=== PATIENT | female | born 1995 | race Caucasian/White ===

== ENCOUNTER 2017-02-13 20:42 | Emergency (ER) | payer OTHER ==
[~2017-02-13] VITALS: Ht 167.6 cm; Wt 75.0 kg
[2017-02-13 20:43] VITALS: BP 166/103; PULSE 90; RESP 16; TEMP 98.4; O2SAT 100
[2017-02-13] MEDS ORDERED: BIRTH CONTROL PILLS (21:43)
[2017-02-13 21:49] VITALS: BP 167/93; PULSE 80; RESP 16; TEMP 98.4; O2SAT 100
--- NOTE | 2017-02-13 21:54 | PD ---
HPI Chief Complaint: Chest Pain Time Seen by Provider: 21:50 Travel History International Travel<30 days: No Contact w/Intl Traveler<30days: No Traveled to known affect area: No History of Present Illness HPI 21-year-old female presents to the emergency department by private transportation complaining of sharp left-sided chest pain that developed after awakening from a nap. Patient noted some discomfort into the left shoulder. Patient denies any previous history of chest pain. No shortness of breath. Patient does note some tenderness to the chest wall with palpation. Unable to discern if pain is worsened by deep breath. She does take control pills. Patient does not smoke cigarettes. No family history of clotting disorder. Patient has taken no medications for symptoms. Pain is 6-8/10 in intensity. PFSH Past Medical History Narrative Medical Asthma migraines control pills no tobacco use nursing notes reviewed Asthma: Yes Cardiovascular Problems: Yes Chest Pain: Yes Immunizations Current: Yes Tetanus Vaccination: Unknown Influenza Vaccination: Yes ?: Not LMP: 02/04/17 Social History Alcohol Use: Yes (occ) Tobacco Use: No Substance Use: No Allergies-Medications (Allergen,Severity, Reaction): Coded Allergies: No Known Allergies (Unverified , 02/13/17) Reported Meds & Prescriptions Reported Meds & Active Scripts Active Reported [ Control Pills] Review of Systems Except as stated in HPI: all other systems reviewed are Neg General / Constitutional: No: Fever HENT: No: Congestion Cardiovascular: Positive: Chest Pain or Discomfort Respiratory: No: Shortness of Breath, Wheezing Gastrointestinal: No: Abdominal Pain Genitourinary: No: Flank Pain Musculoskeletal: No: Edema, Pain Skin: No Rash Neurologic: No: Weakness Psychiatric: No: Anxiety Hematologic/Lymphatic: No: Lymph Node Enlargement Physical Exam Narrative GENERAL: Well-developed well-nourished female in no acute distress no respiratory distress SKIN: Warm and dry. HEAD: Normocephalic. EYES: No scleral icterus. No injection or drainage. NECK: Supple, trachea midline. No JVD or lymphadenopathy. CARDIOVASCULAR: Regular rate and rhythm without murmurs, gallops, or rubs. RESPIRATORY: Breath sounds equal bilaterally. No accessory muscle use. GASTROINTESTINAL: Abdomen soft, non-tender, nondistended. MUSCULOSKELETAL: No cyanosis, or edema. BACK: Nontender without obvious deformity. No CVA tenderness. Data Data Last Documented VS Vital Signs Date Time Temp Pulse Resp B/P (MAP) Pulse Ox O2 Delivery O2 Flow Rate FiO2 02/13/17 21:49 98.4 80 16 167/93 (117) 100 Room Air Orders Orders Electrocardiogram (02/13/17 21:27) Chest, Single Ap (02/13/17 ) Ed Urine Pregnancytest Poc (02/13/17 21:50) Complete Blood Count With Diff (02/13/17 21:50) D-Dimer (02/13/17 21:50) Basic Metabolic Panel (Bmp) (02/13/17 21:50) Ketorolac Inj (Toradol Inj) (02/13/17 22:00) Troponin I (02/13/17 21:50) Ct Pulmonary Angiogram (02/13/17 ) Iohexol 350 Inj (Omnipaque 350 Inj) (02/14/17 00:35) Ed Discharge Order (02/14/17 01:07) Labs Laboratory Tests Test 02/13/17 21:55 White Blood Count 12.7 TH/MM3 Red Blood Count 4.71 MIL/MM3 Hemoglobin 15.4 GM/DL Hematocrit 44.5 % Mean Corpuscular Volume 94.6 FL Mean Corpuscular Hemoglobin 32.8 PG Mean Corpuscular Hemoglobin Concent 34.6 % Red Cell Distribution Width 12.2 % Platelet Count 263 TH/MM3 Mean Platelet Volume 10.1 FL Neutrophils (%) (Auto) 68.5 % Lymphocytes (%) (Auto) 23.4 % Monocytes (%) (Auto) 6.5 % Eosinophils (%) (Auto) 1.0 % Basophils (%) (Auto) 0.6 % Neutrophils # (Auto) 8.7 TH/MM3 Lymphocytes # (Auto) 3.0 TH/MM3 Monocytes # (Auto) 0.8 TH/MM3 Eosinophils # (Auto) 0.1 TH/MM3 Basophils # (Auto) 0.1 TH/MM3 CBC Comment DIFF FINAL Differential Comment D-Dimer Quantitative (PE/DVT) 1.10 MG/L FEU Blood Urea Nitrogen 9 MG/DL Creatinine 0.77 MG/DL Random Glucose 82 MG/DL Calcium Level 9.4 MG/DL Sodium Level 140 MEQ/L Potassium Level 3.6 MEQ/L Chloride Level 104 MEQ/L Carbon Dioxide Level 28.2 MEQ/L Anion Gap 8 MEQ/L Estimat Glomerular Filtration Rate 94 ML/MIN Troponin I LESS THAN 0.02 NG/ML MDM Medical Decision Making Medical Screen Exam Complete: Yes Emergency Medical Condition: Yes Medical Record Reviewed: Yes Interpretation(s) Troponin I 0.02, not elevated D-dimer 1.10, elevated EKG normal sinus rhythm rate [address] elevation injury pattern or ectopy noted Last Impressions Chest X-Ray 02/13/17 0000 Signed Impressions: Service Date/Time: Monday, February 13, 2017 22:00 - CONCLUSION: No acute disease. Chaparro Sibley MD CT Angiography 02/13/17 0000 Signed Impressions: Service Date/Time: Tuesday, February 14, 2017 00:18 - CONCLUSION: The study is negative for pulmonary embolism. Jose Mathew MD CBC & BMP Diagram 02/13/17 21:55 Calcium Level 9.4 Vital Signs Date Time Temp Pulse Resp B/P (MAP) Pulse Ox O2 Delivery O2 Flow Rate FiO2 02/13/17 21:49 98.4 80 16 167/93 (117) 100 Room Air 02/13/17 20:43 98.4 90 16 166/103 (124) 100 Room Air Differential Diagnosis chest pain atypical chest pain PE pneumothorax Narrative Course Patient placed on circuit tester and continuous pulse oximetry chest x-ray and EKG performed in view of patient's pleuritic type pain on control pills d- dimer ordered EKG no acute injury pattern or ectopy noted Chest x-ray no lobar infiltrate no pneumothorax D-dimer is elevated 1.[address] pulmonary angiogram is ordered At [address] pulmonary angiogram is negative for PE; patient is informed of results and able to be discharged to home Diagnosis Primary Impression: Atypical chest pain Referrals: Primary Care Physician call for appointment Patient Instructions: General Instructions Additional Instructions: Take ibuprofen Advil/Motrin 600 mg as often as every 6-8 hours for pain associated inflammation for fever 100.4F or greater Follow-up with primary care provider Return to the emergency department for any concerns or change in condition Increase fluid hydration Fiorella Villa MD Feb 13, 2017 21:54
[2017-02-13] MEDS ORDERED: KETOROLAC TROMETHAMINE 30 MG/ML (IVP) VIAL IV PUSH ONE (22:00)
--- NOTE | 2017-02-13 22:16 | RADRPT ---
EXAM DATE/TIME: 02/13/2017 22:00 [facility] COMPARISON: No previous studies available for comparison. INDICATIONS : Chest pain MEDICAL HISTORY : None. SURGICAL HISTORY : None. ENCOUNTER: Initial ACUITY: 1 day PAIN SCORE: 5/10 LOCATION: Bilateral chest FINDINGS: A single view of the chest demonstrates the lungs to be symmetrically aerated without evidence of mas s, infiltrate or effusion. The cardiomediastinal contours are unremarkable. Osseous structures are intact. CONCLUSION: No acute disease. Chaparro Sibley MD on February 13, 2017 at 22:14 Board Certified Radiologist. This report was verified electronically.
[2017-02-13 22:34] LABS: AUTOMATED NEUTROPHIL # 8.7 TH/MM3 (1.8-7.7); BASOPHIL # 0.1 TH/MM3 (0-0.2); BASOPHIL % 0.6 % (0.0-2.0); EOSINOPHIL # 0.1 TH/MM3 (0-0.4); HEMATOCRIT 44.5 % (35.0-46.0); HEMO FLAGS DIFF FINAL; LYMPH % 23.4 % (9.0-44.0); MEAN CELL VOLUME 94.6 FL (80.0-100.0); MEAN CORPUSCULAR HEMOGLOBIN 32.8 PG (27.0-34.0); MEAN CORPUSCULAR HGB CONC 34.6 % (32.0-36.0); MONO % 6.5 % (0.0-8.0); NEUT % 68.5 % (16.0-70.0); PLATELET COUNT 263 TH/MM3 (150-450); RED BLOOD COUNT 4.71 MIL/MM3 (4.00-5.30); RED CELL DISTRIBUTION WIDTH 12.2 % (11.6-17.2); WHITE BLOOD COUNT 12.7 TH/MM3 (4.0-11.0)
[2017-02-13 22:58] LABS: ANION GAP 8 MEQ/L (5-15); BICARBONATE 28.2 MEQ/L (21.0-32.0); BLOOD UREA NITROGEN 9 MG/DL (7-18); CHLORIDE 104 MEQ/L (98-107); GLOMERULAR FILTRATION RATE 94 ML/MIN (>89); POTASSIUM 3.6 MEQ/L (3.5-5.1); SODIUM (NA) 140 MEQ/L (136-145)
[2017-02-14] MEDS ORDERED: IOHEXOL 350 MG/ML 10 ML VIAL (for RAD DIAG) IVCONTRAST ONE (00:35)
--- NOTE | 2017-02-14 00:56 | RADRPT ---
EXAM DATE/TIME: 02/14/2017 00:18 [facility] COMPARISON: No previous studies available for comparison. INDICATIONS : Upper left chest pain; rule out pulmonary embolus. IV CONTRAST: 74 cc Omnipaque 350 (iohexol) IV RADIATION DOSE: 9.86 CTDIvol (mGy) MEDICAL HISTORY : Cardiovascular disease. Asthma SURGICAL HISTORY : None. ENCOUNTER: Initial ACUITY: 1 day PAIN SCALE: 8/10 LOCATION: Left chest TECHNIQUE: Volumetric scanning of the chest was performed using a pulmonary embolism protocol MIP images were re constructed. Using automated exposure control and adjustment of the mA and/or kV according to patien t size, radiation dose was kept as low as reasonably achievable to obtain optimal diagnostic quality images. DICOM format image data is available electronically for review and comparison. Follow-up recommendations for detected pulmonary nodules are based at a minimum on nodule size and pa tient risk factors according to Fleischner Society Guidelines. FINDINGS: PULMONARY ARTERIES: No filling defects are seen in the pulmonary arteries through the segmental level. LUNGS: There is no consolidation or pneumothorax . No concerning pulmonary nodule is visualized. PLEURAE: There is no pleural thickening or pleural effusion. MEDIASTINUM: There is good visualization of the great vessels of the middle mediastinum. No evidence of mediastin al or hilar adenopathy/mass. CONCLUSION: The study is negative for pulmonary embolism. Jose Mathew MD on February 14, 2017 at 0:53 Board Certified Radiologist. This report was verified electronically.
--- NOTE | 2017-02-14 17:43 | EKG ---
Date Performed: 02/13/2017 Time Performed: 21:26:17 PTAGE: 21 years EKG: Sinus rhythm WITH SINUS ARRHYTHMIA NORMAL ECG NO PREVIOUS TRACING DOCTOR: Navarro Lopez Interpretating Date/Time 02/14/2017 17:42:30
== END 2017-02-14 01:51 | disposition home or self-care (01) ==
LOC: NEPC 20:42
DX: R07.89 Other chest pain (principal); J45.909 Unspecified asthma, uncomplicated; I49.8 Other specified cardiac arrhythmias
CPT/HCPCS: 71010; 71275; 80048; 84484; 84703; 85025; 85379; 93005; 96374; 99285; J1885; Q9967